=== PATIENT | male | born 1935 | race Caucasian/White ===

== ENCOUNTER 2017-01-26 23:23 | Emergency (ER) | payer MEDICARE ==
[~2017-01-26] VITALS: Ht 193 cm; Wt 79.9 kg
[~2017-01-26 23:23] MED LIST: ASPI500T13 PO; CLOB15CR19 TP; FAMO20TA37 PO; HYDR25TA11 PO; MULT-208 PO; PRED20TA PO
[2017-01-26 23:25] VITALS: BP 156/85
[2017-01-26] MEDS ORDERED: DEXAMETHASONE 4 MG TABLET ONE (23:48)
[2017-01-26 23:56] LABS: HEMOGLOBIN 14.4 g/dL (13.7-18.0)
[2017-01-27] MEDS ORDERED: DEXAMETHASONE 4 MG TABLET PO ONE
[2017-01-27 00:07] LABS: BLOOD UREA NITROGEN 29 mg/dL (7-18)
== END 2017-01-27 01:15 | disposition home or self-care (01) ==
LOC: ED 01-27 00:48
DX: L12.0 Bullous pemphigoid (principal)
CPT/HCPCS: 36415; 80048; 82040; 85025; 99284; Q0177

== ENCOUNTER 2017-04-18 01:45 | Inpatient (IN) | payer MEDICARE ==
[~2017-04-18] VITALS: Ht 193 cm; Wt 87.6 kg
[2017-04-18] MEDS ORDERED: ONDANSETRON 2MG/ML, 2ML ONE ×2 (02:36→19:06)
[2017-04-18] MEDS ORDERED: MORPHINE SULFATE 4 MG/ML, 1ML ONE ×4 (02:36→21:30)
[2017-04-18] MEDS: SODIUM CHLORIDE 0.9% 1,000 ML IV SCH (10:30)
[2017-04-18 16:16] VITALS: BP 121/68
[2017-04-18] MEDS ORDERED: MORPHINE SULFATE 4 MG/ML, 1ML IVPush PRN (18:30)
[2017-04-18] MEDS ORDERED: ONDANSETRON 2MG/ML, 2ML IV PRN (18:30)
[2017-04-18] MEDS ORDERED: PLEASE ENTER HEIGHT AND WEIGHT MC SCH (18:30)
[2017-04-18] MEDS ORDERED: HYDROCORTISONE 100 MG INJ. ONE (18:36)
[2017-04-18] MEDS ORDERED: FENTANYL PF 250 MCG/5ML ONE (18:56)
[2017-04-18] MEDS ORDERED: PROPOFOL 10 MG/ML, 20ML ONE (19:06)
[2017-04-18] MEDS ORDERED: ROCURONIUM 10 MG/ML ONE (19:06)
[2017-04-18] MEDS ORDERED: CEFAZOLIN 1,000 MG ONE (19:06)
[2017-04-18] MEDS ORDERED: SUCCINYLCHOLINE 20 MG/ML, 10ML ONE (19:06)
[2017-04-18] MEDS ORDERED: EPHEDRINE 50 MG/ML, 1ML ONE (19:06)
[2017-04-18] MEDS ORDERED: TRANEXAMIC ACID 100 MG/ML, 10ML ONE ×2 (19:36)
[2017-04-18] MEDS ORDERED: KETAMINE 10 MG/ML, 20ML ONE (19:46)
[2017-04-18] MEDS ORDERED: ACETAMINOPHEN 325 MG TABLET PO PRN (20:30)
[2017-04-18] MEDS ORDERED: METOCLOPRAMIDE 5 MG/ML, 2ML IV PRN (20:30)
[2017-04-18] MEDS ORDERED: FENTANYL PF 100 MCG/2ML IV PRN (20:30)
[2017-04-18] MEDS ORDERED: OXYcodone 5 MG/5 ML ORAL.SOL UDC PO PRN (20:30)
[2017-04-18] MEDS: morphine SULFATE 10 MG/ML, 1ML IV PRN ×2 (21:33→21:42)
[2017-04-19] MEDS ORDERED: PLEASE ENTER WEIGHT MC SCH (00:30)
[2017-04-19 02:00] VITALS: BP 104/64
[2017-04-19] MEDS ORDERED: BISACODYL 10 MG SUPP PR PRN (02:30)
[2017-04-19] MEDS ORDERED: ALUMINUM/MAG/SIMETHICONE 30 ML UDC PO PRN (02:30)
[2017-04-19] MEDS ORDERED: OXYcodone 5 MG/5 ML ORAL.SOL UDC PO PRN (02:30)
[2017-04-19] MEDS ORDERED: D5%-LACTATED RINGERS 1,000 ML IV SCH (02:30)
[2017-04-19] MEDS ORDERED: morphine SULFATE 10 MG/ML, 1ML IV PRN (02:30)
[2017-04-19] MEDS ORDERED: ACETAMINOPHEN 325 MG TABLET PO PRN (02:30)
[2017-04-19] MEDS ORDERED: MAGNESIUM HYDROXIDE 8%, 30ML UDC PO PRN (02:30)
[2017-04-19] MEDS ORDERED: DIAZEPAM 5 MG TABLET PO PRN (02:30)
[2017-04-19] MEDS ORDERED: DIPHENHYDRAMINE 25 MG CAPSULE PO PRN (02:30)
[2017-04-19] MEDS ORDERED: ONDANSETRON 2MG/ML, 2ML IV PRN (02:30)
[2017-04-19] MEDS ORDERED: CEFAZOLIN PMX 2GM/100ML 100 ML IVPB SCH (03:00)
[2017-04-19 07:03] VITALS: BP 116/65
[2017-04-19] MEDS: DOCUSATE 100 MG CAPSULE PO SCH ×2 (09:00→20:18)
[2017-04-19] MEDS: SODIUM CHLORIDE FLUSH 10ML SYR IVF SCH ×2 (09:10→20:18)
[2017-04-19] MEDS: SENNA/DOCUSATE TABLET PO PRN (09:11)
[2017-04-19] MEDS: MULTIVITAMINS/MINERALS TABLET PO SCH (09:11)
[2017-04-19] MEDS: HYDROcodone/APAP 10/325 MG TABLET PO PRN (09:21)
[2017-04-19 09:54] LABS: BLOOD UREA NITROGEN 15 mg/dL (7-18)
[2017-04-19] MEDS ORDERED: ENOXAPARIN 40 MG/0.4 ML SQ SCH ×2 (11:00→21:00)
[2017-04-19] MEDS: SODIUM CHLORIDE 0.9% 1,000 ML IV SCH (11:21)
[2017-04-19] MEDS ORDERED: CEFAZOLIN PMX 2GM/50ML 50 ML IVPB ONE (11:30)
[2017-04-19 12:30] VITALS: BP 103/56
[2017-04-19 20:00] VITALS: BP 114/59
[2017-04-19] MEDS: FAMOTIDINE 20 MG TABLET PO SCH (20:18)
[2017-04-19] MEDS: CLOBETASOL PROPIONATE CRM 0.05%, 15GM TP SCH (20:22)
[2017-04-20] MEDS: SODIUM CHLORIDE 0.9% 1,000 ML IV SCH (01:19)
[2017-04-20 02:00] VITALS: BP 116/59
[2017-04-20 07:26] VITALS: BP 125/65
[2017-04-20] MEDS: DOCUSATE 100 MG CAPSULE PO SCH ×2 (09:00→20:21)
[2017-04-20] MEDS: CLOBETASOL PROPIONATE CRM 0.05%, 15GM TP SCH ×2 (09:00→20:24)
[2017-04-20 09:17] LABS: ASPARTATE AMINO TRANSFERASE 10 U/L (15-37); BLOOD UREA NITROGEN 27 mg/dL (7-18)
[2017-04-20 09:18] LABS: IS PT STATUS REG ER OR PRE ER? NO
[2017-04-20] MEDS: SENNA/DOCUSATE TABLET PO PRN (09:36)
[2017-04-20] MEDS: MULTIVITAMINS/MINERALS TABLET PO SCH (09:36)
[2017-04-20] MEDS: SODIUM CHLORIDE FLUSH 10ML SYR IVF SCH ×2 (09:37→20:21)
[2017-04-20] MEDS: HYDROcodone/APAP 5/325 TABLET PO PRN (10:43)
[2017-04-20 12:59] VITALS: BP 121/67
[2017-04-20] MEDS: ENOXAPARIN 80 MG/0.8 ML SQ SCH (13:41)
[2017-04-20 20:00] VITALS: BP 104/51
[2017-04-20] MEDS: FAMOTIDINE 20 MG TABLET PO SCH (20:21)
[2017-04-21] MEDS: ENOXAPARIN 80 MG/0.8 ML SQ SCH ×2 (01:43→13:10)
[2017-04-21 02:00] VITALS: BP 115/61
[2017-04-21 04:52] LABS: ASPARTATE AMINO TRANSFERASE 18 U/L (15-37); BLOOD UREA NITROGEN 17 mg/dL (7-18)
[2017-04-21 07:25] VITALS: BP 117/62
[2017-04-21] MEDS: DOCUSATE 100 MG CAPSULE PO SCH (08:37)
[2017-04-21] MEDS: MULTIVITAMINS/MINERALS TABLET PO SCH (08:37)
[2017-04-21] MEDS: HYDROcodone/APAP 10/325 MG TABLET PO PRN (08:37)
[2017-04-21] MEDS: SODIUM CHLORIDE FLUSH 10ML SYR IVF SCH (08:38)
[2017-04-21] MEDS: CLOBETASOL PROPIONATE CRM 0.05%, 15GM TP SCH (09:00)
[2017-04-21] MEDS ORDERED: ENOX80SY4 SQ (09:39)
[2017-04-21] MEDS ORDERED: DIAZ5TAB4 PO (09:39)
[2017-04-21] MEDS ORDERED: HYDR-3240 PO (09:39)
[2017-04-21 14:20] VITALS: BP 105/60
[2017-04-21] MEDS: HYDROcodone/APAP 5/325 TABLET PO PRN (15:01)
== END 2017-04-21 15:10 | DRG 480 ==
LOC: ED 01:45 → 4EST 08:35 → ED 13:45 → 4EST 21:12
PROVIDERS: ADMIT Internal Medicine; ATTEND Internal Medicine
PROC: 0QS736Z Reposition Left Upper Femur with Intramedullary Internal Fixation Device, Percutaneous Approach (ICD-10-PCS; principal; 2017-04-18 20:00)
DX: S72.22XA Displaced subtrochanteric fracture of left femur, initial encounter for closed fracture (principal); J18.9 Pneumonia, unspecified organism; E44.0 Moderate protein-calorie malnutrition; S72.302A Unspecified fracture of shaft of left femur, initial encounter for closed fracture; I48.91 Unspecified atrial fibrillation; L98.8 Other specified disorders of the skin and subcutaneous tissue; L30.9 Dermatitis, unspecified; D72.829 Elevated white blood cell count, unspecified; W01.0XXA Fall on same level from slipping, tripping and stumbling without subsequent striking against object, initial encounter; Z79.52 Long term (current) use of systemic steroids; Z91.81 History of falling; Z68.24 Body mass index [BMI] 24.0-24.9, adult; Y99.0 Civilian activity done for income or pay; Z82.0 Family history of epilepsy and other diseases of the nervous system
CPT/HCPCS: 36415; 71010; 76001; 80048; 80053; 80076; 82040; 83880; 84484; 85014; 85018; 85025; 85610; 85730; 86850; 86900; 93005; 99285; C1713; J0690; J1650; J2405; J2704; J3010; J0330; J1720; J2270; J7030; J7121; J7512